=== PATIENT | female | born 1950 | race Caucasian/White ===

== ENCOUNTER → 2017-01-30 | Outpatient (CLI) | payer MEDICARE ==
--- NOTE | 2017-01-30 13:46 | KCIC ---
3 view right ankle and 3 view right foot HISTORY: Injury yesterday. Generalized pain. Right ankle Bone demineralization. No evidence of acute fracture. No focal aggressive bone destruction. Joint spaces appear intact. There may be a small ankle joint effusion. Right foot Generalized bone demineralization. No acute fracture or focal aggressive bone destruction. Mild degenerative changes at the first MTP joint. Incidentally noted bifid medial hallux sesamoid. IMPRESSION: No evidence of acute fracture or dislocation. Probable ankle joint effusion. Electronically signed by: Car Gray MD (01/30/2017 1:43 PM)
== END | disposition home or self-care (01) ==
LOC: KCIC 10:45
PROVIDERS: ATTEND Family Medicine
DX: S93.401A Sprain of unspecified ligament of right ankle, initial encounter (principal); M81.0 Age-related osteoporosis without current pathological fracture; X58.XXXA Exposure to other specified factors, initial encounter; Y93.89 Activity, other specified; Y92.89 Other specified places as the place of occurrence of the external cause; Y99.8 Other external cause status
CPT/HCPCS: 73610; 73630

== ENCOUNTER → 2018-11-11 | Outpatient (CLI) | payer MEDICARE ==
--- NOTE | 2018-11-11 15:05 | KCIC ---
KNEE RIGHT 3V History: Right anterior knee pain after a fall 2-3 weeks ago Comparison: None. Findings: 3 views right knee are submitted. No acute fracture or dislocation is identified. There is very mild osteophyte formation of the medial and lateral compartments. There is osteochondroma of the distal, lateral aspect of the right femur. Impression: 1. No acute fracture is identified. 2. There is osteochondroma of the lateral, distal right femur. Electronically signed by: Win Munoz MD (11/11/2018 3:02 PM) [facility]
== END | disposition home or self-care (01) ==
LOC: KCIC 11:27
PROVIDERS: ATTEND Family Medicine
DX: D16.21 Benign neoplasm of long bones of right lower limb (principal); M25.761 Osteophyte, right knee
CPT/HCPCS: 73562

== ENCOUNTER 2019-06-27 06:06 | Day surgery (SDC) | payer MEDICARE ==
[~2019-06-27] VITALS: Ht 174.6 cm; Wt 93.5 kg
[~2019-06-27 06:06] MED LIST: ASPI-630 PO; ATOR20TA PO; BETA15CR5 TP; CITA40TA5 PO; MULT-121 PO; ZOLP10TA4 PO
[2019-06-27] MEDS ORDERED: BUPIVACAINE-EPI 0.5%-1:200000 MPF 30 ML VIAL. INJ ONE (06:30)
[2019-06-27] MEDS ORDERED: ONDANSETRON PF 4 MG/2 ML VIAL. IV PRN (07:00)
[2019-06-27] MEDS ORDERED: fentaNYL PF VIAL 100 MCG/2 ML VIAL IV PRN ×2 (07:00)
[2019-06-27] MEDS ORDERED: PROCHLORPERAZINE 10 MG/2 ML VIAL. IV PRN (07:00)
[2019-06-27] MEDS ORDERED: MORPHINE SULFATE 2 MG/ML VIAL. IV PRN (07:00)
[2019-06-27] MEDS ORDERED: HYDROmorphone 2 MG/ML VIAL IV PRN (07:00)
[2019-06-27] MEDS ORDERED: LIDOCAINE 1% PF 2 ML VIAL. ID PRN (07:00)
[2019-06-27] MEDS ORDERED: IV RINGERS,LACTATED 1000ML 1,000 ML IV SCH (07:00)
--- NOTE | 2019-06-27 07:06 | EKG ---
[facility] [address] [place] [id number] Test Date: 2019-06-27 Test Time: 07:01:52 Pat Name: NISSA SALAZAR Department: Room: Gender: F General Counsel: SRAVANTHI : 1950 Requested By: PAOLA RICHTER Order Number: [id number] Reading MD: Ned Reina Measurements Intervals [place] Rate: 69 P: 28 OR: 130 QRS: 50 QRSD: 80 T: 48 QT: 432 QTc: 465 Interpretive Statements SINUS RHYTHM Electronically Signed On 06-30-2019 14:39:13 [employer] SPECIALIST by Ned Reina
[2019-06-27] MEDS ORDERED: PROPOFOL 20 ML IV ONE (07:12)
[2019-06-27] MEDS ORDERED: ONDANSETRON PF 4 MG/2 ML VIAL. ONE (07:12)
[2019-06-27] MEDS ORDERED: FAMOTIDINE 20 MG/2 ML VIAL ONE (07:12)
[2019-06-27] MEDS ORDERED: MIDAZOLAM HCL/PF 2 MG/2 ML VIAL. ONE (07:12)
[2019-06-27] MEDS ORDERED: KETAMINE HCL IN NACL, ISO-OSM 50 MG/5 ML SYRINGE ONE (07:12)
[2019-06-27] MEDS ORDERED: LIDOCAINE 2% PF 5 ML VIAL. ONE (07:12)
[2019-06-27] MEDS ORDERED: KETOROLAC 30 MG/ML VIAL. ONE (07:12)
[2019-06-27] MEDS ORDERED: BUPIVACAINE MPF 0.5% 30 ML VIAL. ONE (07:29)
[2019-06-27 07:33] LABS: BASO # 0.1 x10^3/uL (0.0-0.2); BASO % 1 % (0-3); EOS # 0.1 x10^3/uL (0.0-0.7); EOS % 2 % (0-3); HEMATOCRIT 42.4 % (36.0-47.0); HEMOGLOBIN 14.2 g/dL (12.0-15.5); LYMPH # 2.4 x10^3/uL (1.0-4.8); LYMPH % 28 % (24-48); MEAN CORPUSCULAR HEMOGLOBIN 32 pg (25-35); MEAN CORPUSCULAR HGB CONC 34 g/dL (31-37); MEAN CORPUSCULAR VOLUME 96 fL (79-100); MONO # 0.7 x10^3/uL (0.0-1.1); MONO % 8 % (0-9); NEUT # 5.4 x10^3/uL (1.8-7.7); NEUT % 62 % (31-73); PLATELET COUNT 248 x10^3/uL (140-400); RED BLOOD COUNT 4.43 x10^6/uL (3.50-5.40); RED CELL DISTRIBUTION WIDTH 13.1 % (11.5-14.5); WHITE BLOOD COUNT 8.8 x10^3/uL (4.0-11.0)
[2019-06-27] MEDS ORDERED: HYDR-3165 PO (07:39)
--- NOTE | 2019-06-27 07:40 | DISCH ---
DISCHARGE INSTRUCTIONS Condition on Discharge Condition on Discharge: Stable Activity After Discharge Activity Instructions for Disc: Progressive ambulation (slow advance activity as tolerated elevated and ice when not up and around) Weight Bearing Status after Di: As tolerated Diet after Discharge Diet after Discharge: Regular Wound Incision Care Wound/Incision Care: Change dressing (remove dressing in 2 days may then shower no soaking until sutures removed) Contacting the after DC Call your doctor for: Concerns you may have Follow-Up Follow up with: Dr. Perez 10 days PAOLA PEREZ MD Jun 27, 2019 07:40
[2019-06-27] MEDS ORDERED: DESFLURANE 31 TO 60 MINUTES IH ONE (08:30)
[2019-06-27] MEDS ORDERED: HYDROcodone/APAP 7.5/325MG 1 TAB TABLET PO ONE (09:30)
[2019-06-27 09:39] VITALS: BP 150/80
--- NOTE | 2019-06-27 14:11 | PDOC4 ---
Operative Note Operative Note Date of surgery: 06/27/2019 Preoperative diagnosis: Meniscal tear right knee Postoperative diagnosis: Same Operative procedure: Right knee arthroscopy partial medial and lateral meniscectomy Surgeon: Ana Anesthesia: Gen. Estimated blood loss: 5 mL Complications: None Operative indications: Please see my preoperative clinic notes and history and physical for details operative indications and note that we had discussed the structure and function of the meniscus the rationale for the procedure the possibility of continued pain infection nerve or blood vessel damage medical or other anesthetic complications and the fact that I cannot undo any degenerative changes or the pain caused by them in association with this procedure. Operative text: Patient was identified procedure verified patient placed in the supine position operating table. After adequate amounts of general anesthesia were administered a tourniquet was placed on the right thigh and the right lower extremity was prepped and draped in standard sterile fashion. After timeout was performed patient procedure identified and verified the right lower extremity was exsanguinated by Esmarch bandage tourniquet inflated to 300 mmHg. A lateral portal was established a medial portal established using spinal needle localization and the knee joint was systematically examined. 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 Good patellofemoral tracking and no loose bodies noted in the gutters or suprapatellar pouch there was a displaceable tear of the body and posterior horn area of the medial meniscus which was trimmed back to stable tissue with the arthroscopic punch and shaver. ACL was probed and found to be intact and lateral meniscus was noted to have significant complex free edge tears in the body area posterior horn which were debrided back to stable tissue. The knee was again toured to ensure no loose cartilage fragments or loose bodies were present. The knee was drained of arthroscopic fluid portals closed with nylon suture injected with 20 mL of half percent plain Marcaine sterile dressings were applied patient was returned returned to recovery room in stable condition having tolerated procedure well toes were noted be warm pink following deflation of tourniquet PAOLA RICHTER MD Jun 27, 2019 14:11
== END 2019-06-27 10:25 | disposition home or self-care (01) ==
LOC: SURG 06:06
PROVIDERS: ATTEND Orthopaedic Surgery
DX: S83.241A Other tear of medial meniscus, current injury, right knee, initial encounter (principal); S83.271A Complex tear of lateral meniscus, current injury, right knee, initial encounter; S83.281A Other tear of lateral meniscus, current injury, right knee, initial encounter; K57.30 Diverticulosis of large intestine without perforation or abscess without bleeding; F41.9 Anxiety disorder, unspecified; F32.9 Major depressive disorder, single episode, unspecified; E78.00 Pure hypercholesterolemia, unspecified; Z86.010 Personal history of colon polyps; Z98.890 Other specified postprocedural states; Z80.0 Family history of malignant neoplasm of digestive organs; Z87.891 Personal history of nicotine dependence; Z72.89 Other problems related to lifestyle; X58.XXXA Exposure to other specified factors, initial encounter; Y93.89 Activity, other specified; Y92.89 Other specified places as the place of occurrence of the external cause; Y99.8 Other external cause status
CPT/HCPCS: 29880; 36415; 85025; 93005; 97161; A7015; C1782; J0696; J1885; J2001; J2250; J2405; J2704; J3490

== ENCOUNTER → 2019-09-03 | Outpatient (CLI) | payer MEDICARE ==
[~2019-09-03] MED LIST changes: +HYDR-3165 PO
--- NOTE | 2019-09-03 16:41 | KCIC ---
EXAM: 1. Thoracic spine 2 views. 2. Lumbar spine 3 views. HISTORY: Back pain, spinal stimulator placement. COMPARISON: None. FINDINGS: There is a mild thoracic dextroscoliosis. Loss of disc height within the mid and lower thoracic spine is consistent with moderate degenerative disc disease. No thoracic fractures are identified. Mild wedging at the superior endplate of T12 is likely developmental or degenerative. Spinal stimulator electrodes are at T9-10. The generator projects along the right buttock. Lumbar alignment is maintained. No fractures are identified. Degenerative disc disease is moderate to severe at L4-5 and mild from L1 through L3 and at L5-S1. 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 There is a large hiatal hernia. A left lower pole renal calculus measures 8 mm. There are atherosclerotic calcifications of the aorta. IMPRESSION: 1. Spinal stimulator electrodes at T9-10. 2. Degenerative disc disease is moderate to severe at L4-5 and moderate throughout the lower thoracic spine. 3. Large hiatal hernia. Electronically signed by: Darvin Vazquez MD (09/03/2019 4:38 PM) [facility]
== END | disposition home or self-care (01) ==
LOC: KCIC 12:56
PROVIDERS: ATTEND Neurological Surgery
DX: M51.36 Other intervertebral disc degeneration, lumbar region (principal); K44.9 Diaphragmatic hernia without obstruction or gangrene; I70.0 Atherosclerosis of aorta
CPT/HCPCS: 72072; 72100